=== PATIENT | male | born 1980 | race Caucasian/White ===

== ENCOUNTER 2016-11-08 08:21 | Emergency (ER) | payer OTHER ==
[2016-11-08 08:50] VITALS: TEMP 100.8
[2016-11-08] MEDS ORDERED: ACETAMINOPHEN TAB 500 MG TAB PO STA (09:32)
--- NOTE | 2016-11-08 09:50 | ED ---
URI HPI - General Chief Complaint: Upper Respiratory Infection Stated Complaint: Head cold Time Seen by Provider: 11/08/16 09:26 Source: patient, RN notes reviewed Mode of arrival: ambulatory Limitations: no limitations - History of Present Illness Initial Comments: 36-year-old male present emergency department with chief complaint of cough congestion fever or chills body aches. Patient states symptoms started a few days ago. Patient states that his son had strep throat. He states he has no sore throat this time. Patient states that he's been taking some over-the- counter cough and cold medication. He has not taken any recent Tylenol or Motrin. Patient states that his cough is primarily dry. Patient denies any chest pain. Denies any nausea vomiting diarrhea constipation. - Related Data Home Medications Medication Instructions Recorded Confirmed Dextroamphetamine/Amphetamine 5 mg PO BID 12/11/15 07/18/16 [Adderall] Previous Rx's Medication Instructions Recorded HYDROcodone/APAP 10-325MG [[place] 1 tab PO Q6H PRN #20 tab 02/04/16 10-325] Ibuprofen [Motrin] 600 mg PO Q8HR PRN #20 tab 06/15/16 Orphenadrine [Norflex] 100 mg PO Q12H #10 tablet.er 07/18/16 predniSONE 40 mg PO DAILY #8 tab 07/18/16 Amoxicillin/Potassium Clav 1 tab PO Q12HR #20 tab 11/08/16 [Augmentin 875-125 Tablet] Allergies Allergy/AdvReac Type Severity Reaction Status Date / Time shellfish derived [Shellfish] Allergy Rash/Hives Verified 11/08/16 08:49 Review of Systems ROS Statement: Those systems with pertinent positive or pertinent negative responses have been documented in the HPI. ROS Other: All systems not noted in ROS Statement are negative. Past Medical History Past Medical History: No Reported History Additional Past Medical History / Comment(s): 3 hernniated disc, 2 degenerated discs lower back History of Any Multi-Drug Resistant Organisms: None Reported Past Surgical History: Orthopedic Surgery Additional Past Surgical History / Comment(s): herniated disks Past Psychological History: Anxiety, Depression Smoking Status: Current every day smoker Past Alcohol Use History: Occasional Past Drug Use History: None Reported General Exam Limitations: no limitations General appearance: alert, in no apparent distress Head exam: Present: atraumatic, normocephalic, normal inspection Eye exam: Present: normal appearance, PERRL, EOMI. Absent: scleral icterus, conjunctival injection, periorbital swelling ENT exam: Present: normal exam, normal oropharynx, mucous membranes moist, TM's normal bilaterally, normal external ear exam Neck exam: Present: normal inspection, full ROM. Absent: tenderness, meningismus, lymphadenopathy Respiratory exam: Present: normal lung sounds bilaterally. Absent: respiratory distress, wheezes, rales, rhonchi, stridor Cardiovascular Exam: Present: regular rate, normal rhythm, normal heart sounds. Absent: systolic murmur, diastolic murmur, rubs, gallop, clicks GI/Abdominal exam: Present: soft, normal bowel sounds. Absent: distended, tenderness, guarding, rebound, rigid Course Vital Signs 11/08/16 08:47 Temperature 100.8 F H Pulse Rate 93 Respiratory 20 Rate Blood Pressure 127/72 O2 Sat by Pulse 99 Oximetry Medical Decision Making - Medical Decision Making 36-year-old male presented emergency from for cough and cold like symptoms. Patient's chest x-ray, influenza are negative. Patient appears to have acute sinusitis. Patient we treated this time with Augmentin. Patient will be discharged and advised to take [id number] cough and cold medications in addition. - Lab Data Lab Results 11/08/16 Range/Units 08:50 Influenza Type A RNA Not Detected (Not Detectd) Influenza Type B (PCR) Not Detected (Not Detectd) Disposition Clinical Impression: Acute abscess of maxillary sinus, Cough, Fever Disposition: HOME SELF-CARE Condition: Stable Instructions: Sinusitis (ED) Additional Instructions: Please return to the Emergency Department if symptoms worsen or any other concerns. Prescriptions: Amoxicillin/Potassium Clav [Augmentin 875-125 Tablet] 1 tab PO Q12HR #20 tab Time of Disposition: 10:18
--- NOTE | 2016-11-08 10:00 | XR ---
EXAMINATION TYPE: XR chest 2V DATE OF EXAM: 11/08/2016 9:47 AM COMPARISON: 12/17/2014 TECHNIQUE: PA and lateral views submitted. HISTORY: Cough and cold FINDINGS: The lungs are clear and there is no pneumothorax, pleural effusion, or focal pneumonia. Left apical bleb formation noted. IMPRESSION: 1. No acute process.
[2016-11-08 10:28] VITALS: BP 124/75; PULSE 85; RESP 18
== END 2016-11-08 10:28 | disposition home or self-care (01) ==
LOC: EC 08:21
DX: J32.0 Chronic maxillary sinusitis (principal); F32.9 Major depressive disorder, single episode, unspecified; F41.9 Anxiety disorder, unspecified; F17.200 Nicotine dependence, unspecified, uncomplicated; Z79.899 Other long term (current) drug therapy; Z91.013 Allergy to seafood
CPT/HCPCS: 71020; 87502; 99283

== ENCOUNTER 2019-02-11 18:53 | Emergency (ER) | payer BC, MEDICAID ==
[2019-02-11 18:57] VITALS: TEMP 97.7
[2019-02-11] MEDS ORDERED: LORazepam 2 MG/ML INJ IV STA (19:26)
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
--- NOTE | 2019-02-11 20:10 | XR ---
EXAMINATION TYPE: XR chest 2V DATE OF EXAM: 02/11/2019 COMPARISON: 11/08/2016 HISTORY: Chest pain TECHNIQUE: Frontal and lateral views of the chest are obtained. FINDINGS: Heart and mediastinum are normal. Lungs are clear. Diaphragm is normal. There are chest le ads. IMPRESSION: Minimal emphysematous changes at the left lung apex. Otherwise negative exam. Normal hea rt. No change.
[2019-02-11 20:16] VITALS: RESP 18
[2019-02-11 20:30] LABS: Amphetamine Screen,Urine Detected (NotDetected); Barbiturate Screen,Urine Not Detected (NotDetected); Benzodiazepines Screen,Urine Not Detected (NotDetected); Cocaine Screen,Urine Not Detected (NotDetected); Methadone Screen, Urine Not Detected (NotDetected); Opiate Screen,Urine Not Detected (NotDetected); Oxycodone Screen, Urine Not Detected (NotDetected); Phencyclidine Screen,Urine Not Detected (NotDetected); Tricyclic Antidepressant,Urine Not Detected (NotDetected); Urn Cannabinoid Scrn Detected (NotDetected)
[2019-02-11 21:19] VITALS: BP 132/97; PULSE 90
== END 2019-02-11 21:16 | disposition home or self-care (01) ==
LOC: EC 18:53
DX: F15.10 Other stimulant abuse, uncomplicated (principal); F41.9 Anxiety disorder, unspecified; R00.0 Tachycardia, unspecified; F17.200 Nicotine dependence, unspecified, uncomplicated; Z91.013 Allergy to seafood
CPT/HCPCS: 80306; 71046; 99285; 96374; J2060

== ENCOUNTER → 2020-10-02 | Outpatient (CLI) | payer OTHER ==
--- NOTE | 2020-10-03 10:08 | MR ---
EXAMINATION TYPE: MR brain wo/w ivan wo DATE OF EXAM: 10/02/2020 COMPARISON: Brain MRI 02/14/2020 HISTORY: Memory loss, pain, rt toe numbness, hemalatha arm weakness, headaches TECHNIQUE: Multiplanar, multisequence images of the brain and brainstem performed without and with IV contrast, utilizing 9.5 mL intravenous Gadavist , cervical spine imaging performed without contrast. FINDINGS: Brain MRI: Diffusion weighted images demonstrate no evidence of a recent infarct or other diffusion a bnormality. There is no extra-axial fluid collection or significant white matter signal abnormality. The ventricular system and cisternal spaces are normal in size and appearance. The brain volume is age appropriate. Midline structures demonstrate normal morphology. The craniocervical junction appears within normal limits. Post contrast images demonstrate stable enhancement, wispy left frontal serpiginous enhancem ent is again noted with a stable appearance. The dural venous sinuses appear patent. The visualized s inuses are remarkable for some mucoperiosteal thickening in the ethmoid air cells and the globes are intact. IMPRESSION: No acute abnormality. Stable possible venous angioma left frontal region. Cervical spine MRI: There is a spinal curvature noted in the thoracic spine. Cervical vertebral bodies show preserved hei ght and alignment, there is loss of disc height signal at C5-6 with endplate discogenic marrow signal change, spondylosis. Posterior extension endplate disc complex causes mild anterior mass effect on t he thecal sac in the left posterior paracentral location. Uncovertebral joint hypertrophy results in some left-sided foraminal encroachment at this level. There is no spinal stenosis. No other disc agueda iation. Cervical cord signal is normal. IMPRESSION: Degenerative disc disease C5-6, thoracic scoliosis suspected.
== END | disposition home or self-care (01) ==
LOC: RADMRIMAIN 13:18
PROVIDERS: ATTEND Family Medicine
DX: M50.322 Other cervical disc degeneration at C5-C6 level (principal); G43.101 Migraine with aura, not intractable, with status migrainosus; M50.00 Cervical disc disorder with myelopathy, unspecified cervical region
CPT/HCPCS: 70553; 72141; A9585

== ENCOUNTER → 2021-01-02 | Day surgery (SDC) | payer OTHER ==
[2020-12-28 10:25] VITALS: BMI 25.2
[~2021-01-02] MED LIST: LACTATED RINGERS 1,000 ML IV SCH
== END ==
LOC: ORPAIN 08:02
PROVIDERS: ATTEND Specialist
DX: Z53.9 Procedure and treatment not carried out, unspecified reason (principal)

== ENCOUNTER → 2023-06-05 | Outpatient (CLI) | payer OTHER ==
--- NOTE | 2023-06-08 23:02 | MR ---
EXAMINATION TYPE: MR iac wo/w con DATE OF EXAM: 06/05/2023 COMPARISON: HISTORY: Cranial nerve disorder, hearing loss right side, stroke CONTRAST: Performed utilizing 9 mL intravenous Gadavist gadolinium contrast. TECHNIQUE: Multiplanar, multiecho imaging on a 3.0 [place]onda magnet is performed through the brain. Atte ntion is paid to the internal auditory canals with thin section imaging. Postcontrast imaging is per formed through the internal auditory canals. FINDINGS:Craniovertebral junction is normal. The pituitary is normal. Diffusion-weighted imaging is performed. No suspicious hyperintensity is present to suggest an acute intracranial infarct or acute ischemic area. There is a punctate 0.3 cm hyperintensity within the subcortical white matter left watershed region. Series 401 image 21 is present on inversion recovery weighted sequence. Thin section imaging is performed through the internal auditory canals and cerebellar pontine angles. No cerebellar pontine angle masses are evident. The internal auditory canals appear normal without expansion or erosion. Postcontrast imaging was performed. No suspicious enhancement is evident within the internal audito ry canals or the included portions of the brain. IMPRESSION: 1. No suspicious abnormality right internal auditory canal or middle ear abnormality to account for r ight-sided hearing loss. 2. Single nonspecific white matter change left subcortical white matter. This is not out of proportio n of the patient's age. Differential diagnosis could include migraine headache, vasculitis, microvasc ular ischemic change.
== END | disposition home or self-care (01) ==
LOC: RADMRIMAIN 19:27
PROVIDERS: ATTEND Internal Medicine Geriatric Medicine
DX: G52.9 Cranial nerve disorder, unspecified (principal); R90.82 White matter disease, unspecified
CPT/HCPCS: 70553; A9585

== ENCOUNTER → 2023-07-22 | Outpatient (CLI) | payer OTHER ==
[2023-07-22 18:00] LABS: Total Protein,CSF 46 mg/dL (12-60)
[2023-07-22 19:58] LABS: Appearance,CSF Clear; CSF Tube Number 4; Nucleated Cells, CSF 16 u/L (0-5)
[2023-07-22 19:59] LABS: Red Blood Cell,CSF 1 u/L (0-10)
[2023-07-22 21:15] LABS: Albumin 4.4 g/dL (3.8-4.9); Protein, Total 6.8 g/dL (6.2-8.2)
[2023-07-22 21:50] LABS: Mononuclear WBC,Body Fluid 100 %; Total Cells Counted,Body Fluid 100
[2023-07-24 11:27] LABS: Gamma Globulin 0.72 g/dL (0.70-1.50)
== END | disposition home or self-care (01) ==
LOC: LABWHC1 09:19
PROVIDERS: ATTEND Psychiatry & Neurology Neurology
DX: H91.91 Unspecified hearing loss, right ear (principal); R29.810 Facial weakness
CPT/HCPCS: 36415; 82040; 82042; 82784; 83916; 84157; 84165; 86618; 89050

== ENCOUNTER → 2023-07-23 | Outpatient (CLI) | payer OTHER ==
--- NOTE | 2023-07-23 15:50 | MR ---
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 The patient was then given intravenous contrast and multi planar, T1 fat-saturation images wer e obtained. Specialized thin sequences were obtained through the internal auditory canals. Pre-and p ost gadolinium sequences were obtained. IV Contrast: 9 cc Gadavist FINDINGS: The baker-white junctions, ventricular system, basal cisterns appear unremarkable. Diffusion-weighted imaging shows no evidence of restricted diffusion to suggest acute/subacute infarct. Intracranial ar terial flow voids are maintained. Midline structures show no abnormality. The susceptibility weighted images do not reveal any evidence for micro-hemorrhage. After administration of gadolinium, no abnor mal enhancement is seen. Left frontal lobe developmental venous anomaly near the inferior aspect of t he anterior horn of the lateral ventricle. The bone marrow signal is within normal limits. Paranasal sinuses and mastoid air cells: No significant paranasal sinus disease. Visualized orbits: Orbital contents are intact. The internal auditory canal sequences demonstrate no significant irregularity. The 7th cranial nerve s, 8 cranial nerves, and cerebellar pontine angles appear unremarkable. After the administration jerri olinium, no abnormal enhancement is seen within the internal auditory canals. Vascular loop: None. IMPRESSION: 1. No evidence of intracranial mass nor acute/subacute CVA. 2. No evidence of intracranial mass, acute/subacute infarct, or abnormal enhancement. 3. Left frontal lobe developmental venous anomaly.
== END | disposition home or self-care (01) ==
LOC: RADMRIMAIN 14:41
PROVIDERS: ATTEND Family Medicine
DX: G52.9 Cranial nerve disorder, unspecified (principal); Q28.3 Other malformations of cerebral vessels
CPT/HCPCS: 70553; A9585